=== PATIENT | male | born 1990 | race African-American/Black ===

== ENCOUNTER 2018-12-07 10:02 | Emergency (ER) | payer OTHER ==
[~2018-12-07] VITALS: Ht 170.2 cm; Wt 68.0 kg
[2018-12-07 10:29] LABS: BASOPHILS 1.1 % (0.0-2.0); EOSINOPHILS 2.8 % (0.0-3.0); HEMATOCRIT 44.4 % (42.0-52.0); HEMOGLOBIN 14.7 gm/dL (14.0-18.0); LYMPHOCYTES 42.3 % (24.0-44.0); MCH 30.4 pg (26.0-34.0); MCHC 33.2 g/dL (28.0-37.0); MCV 91.5 fL (80.0-100.0); MONOCYTES 9.4 % (1.0-8.0); PLATELET COUNT 282 thou/uL (150-400); POLYS 44.4 % (36.0-66.0); RBC 4.86 mil/uL (4.50-6.00); RDW 12.8 % (10.5-14.5); WBC 4.4 thou/uL (4.0-11.0)
[2018-12-07 10:35] LABS: ANION GAP 11 mmol/L (7-16); BUN 17 mg/dL (7-18); CHLORIDE 102 mmol/L (98-107); CO2 27 mmol/L (21-32); CREATININE 1.2 mg/dL (0.7-1.3); GLUCOSE 100 mg/dL (74-106); POTASSIUM 3.5 mmol/L (3.5-5.1); SODIUM 140 mmol/L (136-145)
[2018-12-07 10:45] LABS: ALBUMIN 4.4 g/dL (3.4-5.0); MAGNESIUM 1.8 mg/dL (1.8-2.4); SGOT 25 U/L (15-37); SGPT 33 U/L (30-65); TOTAL BILIRUBIN 0.9 mg/dL (<0.1-1.0); TROPONIN-I <0.06 ng/mL (<0.06)
[2018-12-07] MEDS ORDERED: MOBIC7.5 MG PO (11:09)
[2018-12-07] MEDS ORDERED: ULTRAM 50MG TAB50 MG PO (11:09)
[2018-12-07 11:24] VITALS: BP 108/67
--- NOTE | 2018-12-08 16:54 | EKG ---
[address] [address] ELECTROCARDIOGRAM REPORT Name: MARYJANE SHAH Room #: DEP Darcy#: [id number] ������������������ Admission: 12/07/18 ������������������ Attend Phys: Discharge: 12/07/18 ������������������ Date of : 88 Report #: [id number] ����������������������������������������������������������������� [id number] THIS REPORT FOR: //name// [facility] ED Test Date: 2018-12-07 Test Time: 10:08:12 Pat Name: MARYJANE SHAH Department: Room: Gender: M Instructional Assistant: MAXIMO : 1990 Requested By: Charla Brown Order Number: [id number] MD: Gianni Brantley Measurements Intervals [place] Rate: 68 P: 68 MT: 149 QRS: 69 QRSD: 95 T: 20 QT: 332 QTc: 354 Interpretive Statements Sinus arrhythmia Borderline T wave abnormalities No previous ECG available for comparison Electronically Signed On 12-08-2018 16:54:20 CDT by Gianni Brantley [email or web address] ��������������������������������������������� <ELECTRONICALLY SIGNED> ���������������������������������������� By: Gianni Brantley MD, [facility] ��������������������������������������������� 12/08/18 1654 1008 [id number] Gianni Brantley MD, FACC /EPI
== END 2018-12-07 11:30 | disposition home or self-care (01) ==
LOC: ER 10:02
PROVIDERS: Physician Assistant
DX: R07.89 Other chest pain (principal)

== ENCOUNTER → 2018-12-10 | Outpatient (CLI) | payer OTHER ==
[~2018-12-10] MED LIST: MOBIC7.5 MG PO; ULTRAM 50MG TAB50 MG PO
--- NOTE | 2018-12-10 09:32 | 2DMMODE ---
[facility] [place] [address] 2 D/M-MODE ECHOCARDIOGRAM Name: MARYJANE SHAH Room #: REG [facility]#: [id number] ������������� Admission: 12/10/18 ������������� Attend Phys: Krzysztof Maradiaga MD Discharge: ��� ������������� ��� Date of : 88 Date of Service: 12/10/18 0931 �� Report #: [id number] �������� ��������������������������������������������[id number] THIS REPORT FOR: //name// APPROVED REPORT Study performed: 12/10/2018 08:03:22 EXAM: Comprehensive 2D, Doppler, and color-flow Echocardiogram Patient Location: Out-Patient Status: routine BSA: 1.81 HR: 68 bpm BP: 120/80 mmHg Rhythm: NSR Other Information Study Quality: Good Indications Chest Pain 2D Dimensions RVDd: 34.82 mm IVSd: 9.04 (7-11mm) LVOT Diam: 24.24 (18-24mm) LVDd: 51.20 mm PWd: 9.13 (7-11mm) Ascending Ao: 29.01 (22-36mm) LVDs: 35.66 (25-40mm) Aortic Root: 31.87 mm Volumes Left Atrial Volume (Systole) Single Plane 4CH: 41.47 mL Single Plane 2CH: 48.69 mL LA ESV Index: 27.00 mL/m2 Aortic Valve AoV Peak Ramo.: 1.33 m/s AO Peak Gr.: 7.04 mmHg LVOT Max P.65 mmHg LVOT Max V: 0.81 m/s JAVON Vmax: 2.83 cm2 Mitral Valve E/A Ratio: 1.5 MV Decel. Time: 205.48 ms MV E Max Ramo.: 0.82 m/s [facility] [address] [place] [address] 2 D/M-MODE ECHOCARDIOGRAM Name: MARYJANE SHAH Room #: [facility]#: [id number] ������������� Admission: 12/10/18 ������������� Attend Phys: Krzysztof Maradiaga MD Discharge: ��� ������������� ��� Date of : 88 Date of Service: 12/10/18 0931 �� Report #: [id number] �������� ��������������������������������������������[id number] MV A Ramo.: 0.56 m/s MV PHT: 59.59 ms IVRT: 78.43 ms Pulmonary Valve PV Peak Ramo.: 0.92 m/s PV Peak Gr.: 3.40 mmHg Pulmonary Vein P Vein S: 0.58 m/s P Vein A: 0.25 m/s P Vein D: 0.47 m/s P Vein A Dur.: 120.0 msec P Vein S/D Ratio: 1.23 Tricuspid Valve TR Peak Ramo.: 1.79 m/s RAP Estimate: 5.00 mmHg TR Peak Gr.: 12.86 mmHg PA Pressure: 18.00 mmHg Left Ventricle The left ventricle is normal size. There is normal LV segmental wall motion. There is normal left ventricular wall thickness. Left ventricular systolic function is normal. LVEF is 55%. The left ventricular diastolic function is normal. Right Ventricle The right ventricle is normal size. The right ventricular systolic function is normal. Atria The left atrium size is normal. The right atrium size is normal. Aortic Valve The aortic valve is normal in structure. No aortic regurgitation is present. There is no aortic valvular stenosis. Mitral Valve The mitral valve is normal in structure. Trace to mild mitral regurgitation. No evidence of mitral valve stenosis. Tricuspid Valve The tricuspid valve is normal in structure. Trace tricuspid regurgitation. Estimated PAP is 18mmHg. Pulmonic Valve The pulmonary valve is normal in structure. Trace pulmonic regurgitation. [facility] [address] [place] [address] 2 D/M-MODE ECHOCARDIOGRAM Name: MARYJANE SHAH Room #: REG [facility]#: [id number] ������������� Admission: 12/10/18 ������������� Attend Phys: Krzysztof Maradiaga MD Discharge: ��� ������������� ��� Date of : 88 Date of Service: 12/10/18 0931 �� Report #: [id number] �������� ��������������������������������������������[id number] Great Vessels The aortic root is normal in size. The ascending aorta is normal in size. IVC is normal in size and collapses >50% with inspiration. Pericardium There is no pericardial effusion. <Conclusion> The left ventricle is normal size. There is normal left ventricular wall thickness. Left ventricular systolic function is normal. The left ventricular diastolic function is normal. The right ventricle is normal size. The left atrium size is normal. The aortic valve is normal in structure. Trace to mild mitral regurgitation. Trace tricuspid regurgitation. Estimated PAP is 18mmHg. ��������������������������������������������� <ELECTRONICALLY SIGNED> ���������������������������������������� By: Krzysztof Maradiaga MD ��������������������������������������������� 12/10/18930 0 0 Krzysztof Maradiaga MD /INF
== END ==
LOC: CV 06:31
DX: I34.0 Nonrheumatic mitral (valve) insufficiency (principal)

== ENCOUNTER 2019-11-08 10:44 | Emergency (ER) | payer OTHER ==
[~2019-11-08] VITALS: Ht 170.2 cm; Wt 70.3 kg
[2019-11-08] MEDS ORDERED: CLARITIN10 M3 PO (11:59)
[2019-11-08 12:13] VITALS: BP 115/76
== END 2019-11-08 12:14 | disposition home or self-care (01) ==
LOC: ER 10:44
DX: J06.9 Acute upper respiratory infection, unspecified (principal); R05 Cough